=== PATIENT | male | born 1960 | race Caucasian/White ===

== ENCOUNTER 2023-06-21 14:45 | Emergency (ER) | payer OTHER ==
[2023-06-21 15:08] VITALS: BP 151/80; O2SAT 97
[2023-06-21 15:23] LABS: BILIRUBIN,URINE NEGATIVE (NEGATIVE); GLUCOSE, URINE (UA) >=1000 mg/dL (NEGATIVE); KETONES,URINE (UA) NEGATIVE (NEGATIVE); LEUKOCYTE ESTERASE, URINE NEGATIVE (NEGATIVE); NITRITE,URINE NEGATIVE (NEGATIVE); OCCULT BLOOD,URINE NEGATIVE (NEGATIVE); PROTEIN,URINE NEGATIVE (NEGATIVE); UROBILINOGEN,URINE 0.2 (NORMAL) E.U./dL (NORMAL)
[2023-06-21 15:27] LABS: CLARITY,URINE CLEAR (CLEAR)
--- NOTE | 2023-06-21 15:36 | ED Physician Documentation ---
PD HPI MALE - Stated complaint Stated Complaint: GI - Chief complaint Chief Complaint: UTI - History obtained from History obtained from: Patient - Additional information Additional information: Patient is a 62-year-old male with a history of chronic urinary retention requiring self-catheterization 4 times a day presenting for evaluation of intermittent episodes of discomfort when he self caths. He states this is been ongoing for at least a week and a half and it was getting better over the weekend but started up again a few days ago. At times he reports having a milky discharge in the morning but does not occur everytime. No fevers, vomiting, abdominal pain. Denies concerns for STIs. Review of Systems Constitutional: denies: Fever Cardiac: denies: Chest pain / pressure Respiratory: denies: Dyspnea GI: denies: Abdominal Pain PD PAST MEDICAL HISTORY - Past Medical History Cardiovascular: Hypertension, High cholesterol Endocrine/Autoimmune: Type 2 diabetes - Past Surgical History Past Surgical History: Yes Derm: Skin cancer surgery - Present Medications Home Medications: Ambulatory Orders Medication Instructions Recorded Confirmed Dapagliflozin Propanediol [Farxiga] 10 mg PO DAILY 04/03/23 04/03/23 Lisinopril [Zestril] 5 mg PO DAILY 04/03/23 04/03/23 Pantoprazole [Protonix] 40 mg PO DAILY 04/03/23 04/03/23 Pravastatin [Pravachol] 20 mg PO DAILY PM 04/03/23 04/03/23 Tamsulosin [Flomax] 0.4 mg PO DAILY 04/03/23 04/03/23 amLODIPine [Norvasc] 10 mg PO DAILY 04/03/23 04/03/23 metFORMIN [Glucophage] 1,000 mg PO BIDWM 04/03/23 04/03/23 - Allergies Allergies/Adverse Reactions: Allergies Allergy/AdvReac Type Severity Reaction Status Date / Time No Known Drug Allergies Allergy Verified 06/21/23 15:02 - Social History Does the pt smoke?: No Smoking Status: Never smoker Does the pt drink ETOH?: Yes ETOH Use: Wine, Beer, Liquor PD ED PE NORMAL - General General: Alert and oriented X 3, No acute distress, Well developed/nourished - HEENT HEENT: Atraumatic - Neck Neck: Supple, no meningeal sign - Cardiac Cardiac: RRR, Strong equal pulses - Respiratory Respiratory: No respiratory distress, Clear bilaterally - Abdomen Abdomen: Soft, Non tender, Non distended - Neuro Neuro: Normal speech Results - Vitals Vitals: Vital Signs - 24 hr 06/21/23 14:52 Temperature 36.4 C L Heart Rate 84 Respiratory 18 Rate Blood Pressure 151/80 H O2 Saturation 97 Oxygen O2 Source Room air - Labs Labs: Laboratory Tests 06/21/23 15:16 Urine Color YELLOW Urine Clarity CLEAR Urine pH 6.0 Ur Specific [place] 1.015 Urine Protein NEGATIVE Urine Glucose (UA) >=1000 H Urine Ketones NEGATIVE Urine Occult Blood NEGATIVE Urine Nitrite NEGATIVE Urine Bilirubin NEGATIVE Urine Urobilinogen 0.2 (NORMAL) Ur Leukocyte Esterase NEGATIVE Ur Microscopic Review NOT INDICATED Urine Culture Comments NOT INDICATED PD Medical Decision Making - ED course Complexity details: reviewed results, d/w patient ED course: Patient with Discomfort intermittently when he self catheterizes. Vital signs are stable and no abdominal tenderness. Urinalysis was obtained here without any markers for infection. Patient is awaiting appointment with a local urologist. At this time I do not see an indication for antibiotics. Patient states that the catheter he uses does , With lubrication which she uses. Offered lidocaine jelly for lubrication but patient does not feel that this is the issue. Denies any blood. Patient comfortable on plan for outpatient follow- up with urology regarding his symptoms as well as advised on concerning symptoms to return for. Departure - Departure Disposition: 01 Home, Self Care Clinical Impression: Dysuria Condition: Stable Instructions: ED Dysuria Uncertain Cause Follow-Up: MARBIN Faulkner [Provider Group] Comments: Your urine testing today does not show any markers for infection. Therefore I do not think antibiotics are indicated at this time. I would recommend close follow-up with a urologist. Return to the ER if you develop any worsening symptoms.
[2023-06-21 17:59] LABS: CHLAMYDIA TRACHOMATIS DNA NEGATIVE (NEGATIVE); NEISSERIA GONORRHOEAE DNA NEGATIVE (NEGATIVE); TRICHOMONAS VAGINALIS DNA NEGATIVE (NEGATIVE)
== END 2023-06-21 15:39 | disposition home or self-care (01) ==
LOC: ED 14:45
DX: R30.0 Dysuria (principal); R33.8 Other retention of urine
CPT/HCPCS: 81001; 81003; 87086; 87491; 87591; 87661; 99283